=== PATIENT | female | born 2000 | race Caucasian/White ===

== ENCOUNTER 2024-07-18 15:12 | Emergency (ER) | payer SELFPAY ==
[~2024-07-18] VITALS: Ht 160 cm; Wt 124.7 kg
--- NOTE | 2024-07-18 16:19 | ERN ---
ED Note History of Present Illness Stated Complaint: FEET PAIN EXTENDING TO LOWER BACK Chief Complaint: FOOT INJURY/PAIN Time Seen by MD: 15:24 Time Seen by Midlevel: 15:30 Dictation: 23-year-old female with no past medical history coming in complaining of bilateral foot throbbing for the last three months. Patient states it initially started when she has to work a [employer] it was standing a lot at her feet, states now she does not work and she is still having that pain. Denies any recent traumas. Allergies: Coded Allergies: No Known Allergies (Unverified Allergy, Unknown, 07/18/24) Past Medical History Past Medical History: No Pertinent History Surgical History: None LMP: Jul 16, 2024 Review of System Dictation Constitutional: Negative for fever,chills, and weight loss Eyes: Negative for injury, pain,redness, and discharge ENT: Negative for injury,pain or swelling Cardiovascular: Negative for chest pain, palpitations, and edema Respiratory: Negative for shortness of breath, cough, and wheezing, Abdomen/GI: Negative for abdominal pain, nausea, vomiting, diarrhea, and constipation Back: Negative for injury and pain : Negative for injury, bleeding and discharge MS/Extremity: Negative for injury and deformity, complaining of bilateral foot pain Skin: Negative for rash, and discoloration Neuro: Negative for headache, weakness, numbness, tingling, and seizure Psych: Negative for suicide ideation, homicidal ideation, and hallucinations Review of Systems: was completed Initial Vital Sign VS Vital Signs Date Time Temp Pulse Resp B/P (MAP) Pulse Ox O2 Delivery O2 Flow Rate FiO2 07/18/24 15:29 98.1 69 20 147/89 97 Room Air 0 07/18/24 16:21 21 Physical Exam Dictation General: awake, alert, NAD Head/Face: Normocephalic, atraumatic Eyes: PERRL, EOMI, vision at baseline ENT: oral cavity clear, TMs clear, no signs of infection Neck: Trachea midline, supple, no nuchal rigidity Cardiovascular: RRR, normal S1/S2, No MRGs, no JVD Respiratory: CTAB, no respiratory distress, No rales or wheezes Abdomen: Soft, non-tender, non-distended, normal bowel sounds, no guarding or rebound. Skin: Warm, dry, normal turgor, no rash MS/Extremity: Pulses equal, no cyanosis, neurovascular intact, FROM Neuro: COAx4, GCS 15, strength 5/5, CN 2-12 intact, normal cerebellar exam, normal gait, Psych: Normal behavior, mood, and affect normal ED Course ED Course Orders Procedure Category Date Status Time Gabapentin 100 Mg Cap PHA 07/18/24 Complete (Neurontin 100 Mg 16:07 Lidocaine (Lidocaine PHA 07/18/24 Complete Patch 4%) 17:43 Methocarbamol PHA 07/18/24 Complete (Methocarbamol) 17:43 Ketorolac PHA 07/18/24 Complete Tromethamine 15mg/Ml 17:43 Dexamethasone 4mg/Ml PHA 07/18/24 Complete 1ml Vial (Dexametha 17:43 Current Medications Medications (Trade) Dose Ordered Sig/Aury Route PRN Reason Start Time Stop Time Status Last Admin Dose Admin Dexamethasone Sodium Phosphate (dexaMETHasone 4MG/ML 1ML VIAL) 6 mg ONCE STAT IM 07/18/24 17:43 07/18/24 17:45 DC 07/18/24 17:58 Gabapentin (NEURontin 100 mg CAP) 100 mg ONCE STAT PO 07/18/24 16:07 07/18/24 16:08 DC 07/18/24 16:40 Ketorolac Tromethamine (toRADol) 15 mg ONCE STAT IM 07/18/24 17:43 07/18/24 17:45 DC 07/18/24 17:58 Lidocaine (Lidocaine Patch 4%) 1 each ONCE STAT TP 07/18/24 17:43 07/18/24 17:45 DC 07/18/24 17:57 Methocarbamol (methoCARBamol) 1,000 mg ONCE STAT PO 07/18/24 17:43 07/18/24 17:45 DC 07/18/24 17:57 Vital Signs Date Time Temp Pulse Resp B/P (MAP) Pulse Ox O2 Delivery O2 Flow Rate FiO2 07/18/24 16:21 98.1 69 20 147/89 97 Room Air* 0 21 07/18/24 15:29 98.1 69 20 147/89 97 Room Air 0 Medical Decision Making MDM MDM: 23-year-old female with no past medical history coming in complaining of bilateral foot throbbing for the last three months. Patient states it initially started when she has to work at [employer] and was standing a lot at her feet, states now she does not work and she is still having that pain. Denies any recent traumas. Patient denies any saddle anesthesia, no incontinence, no unilateral weakness, numbness tingling. No recent travels, no smoking and no contraceptive or any hormonal use. Patient received gabapentin, reassessment patient is now complaining of lower back pain. Added additional pain medications and steroids. Discussed with the patient that she needs to follow up with PCP in 1-2 days, return if symptoms worsen. Differential diagnosis: Neuropathy, plantar fasciitis, sciatica Rationale: Tests considered and ordered secondary to shared decision making include: Previous outside records reviewed: Old ER visits. Risk of complication and/or morbidity or mortality of patient management: None Medications-Per medication reconciliation Need for hospitalization: Patient does not meet criteria for hospitalization. Need for emergency major/minor surgery: No There are no social concerns with this patient. Prescription drug management Prescriptions will include symptomatic care Patient's prior external medical records from other ER visits were reviewed by me as indicated. Prior testing and results from previous visits were reviewed. Prior tests were taken into account with medical decision making and resource utilization, independent historian/historians were used to obtain complete medical history. I independently interpreted the test that were performed, results were reviewed by me and considered findings on radiology if ordered. Medical management and examination interpretation discussions were had by me with other qualified healthcare professionals as indicated for the patient's care. DX & DISP Disposition: Transfer Departure Impression: Primary Impression: Foot pain, bilateral Additional Impression: Lower back pain Condition: Stable Scripts Methocarbamol (Methocarbamol) 1,000 Mg Tablet 750 MG PO QID for 3 Days, #12 TAB Prov: TIM SHAVER [employer] 07/18/24 Lidocaine HCl (Lidocaine HCl) 4 % Adh..patch 1 PATCH TP DAILY for 5 Days, #10 PATCH 0 Refills Prov: TIM SHAVER NP 07/18/24 Ketorolac Tromethamine (Ketorolac Tromethamine) 10 Mg Tablet 1 TAB PO Q6HPRN PRN for pain for 3 Days, #12 TAB 0 Refills Prov: TIM SHAVER NP 07/18/24 Referrals: SELF,REFERRAL (PCP) Time of Disposition: 18:17 I have reviewed the case, and I agree with, Diagnosis and Plan TIM SHAVER NP Jul 18, 2024 16:19
[2024-07-18] MEDS: GABApentin 100 MG CAPSULE PO STA (16:40)
[2024-07-18] MEDS: methoCARBamol 500 MG TABLET PO STA (17:57)
[2024-07-18] MEDS: LIDOCAINE 4% ADH..PATCH TP STA (17:57)
[2024-07-18] MEDS: dexaMETHasone SOD PHOSPHATE 4 MG/ML 1ML VIAL IM STA (17:58)
[2024-07-18] MEDS: ketOROlac 15MG/ML VIAL (15MG/ML) IM STA (17:58)
[2024-07-18] MEDS ORDERED: KETO10TA2 PO (18:25)
[2024-07-18] MEDS ORDERED: METH100054 PO (18:25)
[2024-07-18] MEDS ORDERED: LIDO-15 TP (18:25)
[2024-07-18 18:26] VITALS: BP 135/85; PULSE 69; RESP 20; TEMP 98.1; O2SAT 97
== END 2024-07-18 18:37 | disposition home or self-care (01) ==
LOC: EDH 15:12
DX: M79.671 Pain in right foot (principal); M79.672 Pain in left foot; M54.50 Low back pain, unspecified; X58.XXXA Exposure to other specified factors, initial encounter; Y93.89 Activity, other specified; Y92.89 Other specified places as the place of occurrence of the external cause; Y99.8 Other external cause status
CPT/HCPCS: 99284; 96372 ×2; J1100; J1885